=== PATIENT | female | born 1995 | race Caucasian/White ===

== ENCOUNTER 2018-06-18 09:54 | Emergency (ER) | payer OTHER ==
[~2018-06-18] VITALS: Ht 175.3 cm; Wt 65.5 kg
[2018-06-18] MEDS ORDERED: LORazepam 2 MG/ML, 1ML IVPush ONE (11:30)
[2018-06-18] MEDS ORDERED: SODIUM CHLORIDE FLUSH 10ML SYR IVF ONE (11:30)
[2018-06-18] MEDS ORDERED: LORazepam 2 MG/ML, 1ML ONE (11:36)
[2018-06-18] MEDS ORDERED: LIDOCAINE-MPF 2%, 2ML ONE (11:40)
[2018-06-18] MEDS ORDERED: LIDOCAINE-MPF 2% ,5ML ONE (12:07)
[2018-06-18] MEDS ORDERED: FENTANYL PF 100 MCG/2ML ONE (12:08)
[2018-06-18] MEDS ORDERED: NALOXONE 1 MG/ML, 2ML ONE (12:08)
[2018-06-18] MEDS ORDERED: HYDROcodone/APAP 5/325 TABLET ONE (13:27)
[2018-06-18] MEDS ORDERED: HYDROcodone/APAP 5/325 TABLET PO ONE (13:30)
[2018-06-18] MEDS ORDERED: HYDROmorphone 1 MG/ML, 1ML IV ONE (14:30)
[2018-06-18] MEDS ORDERED: HYDROmorphone 2 MG/ML, 1ML ONE ×2 (14:34→15:10)
[2018-06-18] MEDS ORDERED: HYDROmorphone 2 MG/ML, 1ML IVPush ONE (15:30)
[2018-06-18 16:02] VITALS: BP 133/54
== END 2018-06-18 16:04 | disposition home or self-care (01) ==
LOC: ED 10:45
DX: J93.83 Other pneumothorax (principal)
CPT/HCPCS: 32551; 32557; 71045; 71046; 93005; 96374; 96375; 96376; 99284; C1729; C1769; J1170; J2060; J3010; J3490; J2310

== ENCOUNTER → 2018-06-21 | Outpatient (CLI) | payer OTHER | END | disposition home or self-care (01) | LOC: RAD 11:41 | PROVIDERS: ATTEND Radiology Diagnostic Radiology | DX: T85.848A Pain due to other internal prosthetic devices, implants and grafts, initial encounter (principal) | CPT/HCPCS: 71046 ==

== ENCOUNTER → 2018-07-05 | Outpatient (CLI) | payer OTHER ==
[~2018-07-05] MED LIST: OMNIPAQUE 350 MG/ML, 75ML BOTTLE ONE
== END | disposition home or self-care (01) ==
LOC: CFH 13:53
PROVIDERS: ATTEND Surgery
DX: J93.11 Primary spontaneous pneumothorax (principal)
CPT/HCPCS: 71260; Q9967